=== PATIENT | female | born 1955 | race Two or more races ===

== ENCOUNTER 2016-12-31 10:44 | Outpatient (CLI) | payer MEDICARE, MEDICAID | END 2016-12-31 23:59 | disposition home or self-care (01) | LOC: RAD 10:44 | PROVIDERS: ATTEND Family Medicine | DX: M25.562 Pain in left knee (principal) | CPT/HCPCS: 73562 ==

== ENCOUNTER 2017-01-18 13:35 | Outpatient (CLI) | payer MEDICARE, MEDICAID | END 2017-01-18 23:59 | disposition home or self-care (01) | LOC: MRI 13:35 | PROVIDERS: ATTEND Family Medicine | DX: M94.262 Chondromalacia, left knee (principal); M65.862 Other synovitis and tenosynovitis, left lower leg; M25.462 Effusion, left knee | CPT/HCPCS: 73721; J2310; 90715 ==

== ENCOUNTER 2017-03-08 08:39 | Outpatient (CLI) | payer MEDICARE, MEDICAID | END 2017-03-08 23:59 | disposition home or self-care (01) | LOC: RAD 08:39 | PROVIDERS: ATTEND Family Medicine | DX: Z01.818 Encounter for other preprocedural examination (principal) | CPT/HCPCS: 71020-TC ==

== ENCOUNTER 2018-06-05 17:35 | Emergency (ER) | payer MEDICARE, MEDICAID ==
[~2018-06-05] VITALS: Ht 165.1 cm; Wt 65.8 kg
--- NOTE | 2018-06-05 18:10 | NUR ---
bilateral foot and ankle pain s/p glf on slippery floor. STATES SHE USED A SPRAY FOR THE PAIN, REFUSES ANY PAIN MEDS. PT IS AOX4, USING WHEELCHAIR, VSS, RR EVEN AND UNLABORED. SKIN INTACT. NO ACUTE DISTRESS NOTED. DENIES SOB, DIZZINESS, WEAKENSS, N/V. AT BEDSIDE. READY FOR EVAL.
--- NOTE | 2018-06-05 18:24 | NUR ---
XRAY AT BEDSIDE
--- NOTE | 2018-06-05 19:28 | NUR ---
CONTENT ASSISTANT AT BEDSIDE FOR SPLINT APPLICATION
--- NOTE | 2018-06-05 19:40 | NUR ---
Patient discharged to home in stable condition. Written and verbal after care instructions given. Patient verbalizes understanding of instruction.
[2018-06-05] MEDS ORDERED: ACETAMINOPHEN ES 500 MG TABLET ONE (19:41)
[2018-06-05 19:55] VITALS: BP 140/80
[2018-06-05] MEDS ORDERED: ACETAMINOPHEN 325 MG TABLET PO ONE (20:00)
== END 2018-06-05 19:40 | disposition home or self-care (01) ==
LOC: ER 17:40
DX: S92.322A Displaced fracture of second metatarsal bone, left foot, initial encounter for closed fracture (principal); S92.332A Displaced fracture of third metatarsal bone, left foot, initial encounter for closed fracture; S92.342A Displaced fracture of fourth metatarsal bone, left foot, initial encounter for closed fracture; I48.91 Unspecified atrial fibrillation; Z90.710 Acquired absence of both cervix and uterus; Z90.89 Acquired absence of other organs; W01.0XXA Fall on same level from slipping, tripping and stumbling without subsequent striking against object, initial encounter; Y93.39 Activity, other involving climbing, rappelling and jumping off; Y92.89 Other specified places as the place of occurrence of the external cause; Y99.8 Other external cause status
CPT/HCPCS: 29515; 73630 ×2; 99283; A4606